=== PATIENT | male | born 1995 | race Caucasian/White ===

== ENCOUNTER 2019-10-03 15:51 | Observation (INO) | payer OTHER ==
[~2019-10-03] VITALS: Ht 175.3 cm; Wt 90.7 kg
[2019-10-05] MEDS ORDERED: ACET500 PO (16:03)
[2019-10-05] MEDS ORDERED: ASPI81CH PO (16:04)
[2019-10-05] MEDS ORDERED: IBU800 MG PO (16:05)
[2019-10-05] MEDS ORDERED: OXYC5 PO (16:06)
== END 2019-10-05 16:30 | disposition home or self-care (01) ==
LOC: ER 15:51 → SURS 15:52
PROVIDERS: ADMIT Orthopaedic Surgery
PROC: 0QSD0ZZ Reposition Right Patella, Open Approach (ICD-10-PCS; principal; 2019-10-04 07:00)
DX: S82.001B Unspecified fracture of right patella, initial encounter for open fracture type I or II (principal); V86.59XA Driver of other special all-terrain or other off-road motor vehicle injured in nontraffic accident, initial encounter
CPT/HCPCS: 70450; 73701; 96361; 96365-59; 96366; 96375; 96376; 97116; 97161; 97165; 97535; 99285-25; A9270-GY; G0378; J0690; J1100; J1170; J1885; J2250; J2405; J2704; J3010; J7030; J7050; J7120; Q9967

== ENCOUNTER → 2021-08-25 | Outpatient (CLI) | payer OTHER ==
[~2021-08-25] MED LIST: ACET500 PO; ASPI81CH PO; IBU800 MG PO; OXYC5 PO
== END | disposition home or self-care (01) ==
LOC: LAB SHORT 09:04
DX: L25.9 Unspecified contact dermatitis, unspecified cause (principal)
CPT/HCPCS: 87070; 87075; 87205